=== PATIENT | female | born 1940 | race Caucasian/White ===

== ENCOUNTER 2021-05-29 10:16 | Outpatient (REF) | payer MEDICARE, SELFPAY ==
[2021-05-29 11:05] LABS: COVID-19 Test Negative (Negative); IDNOW Serial# 16C4AD1C
== END 2021-05-29 10:17 | disposition home or self-care (01) ==
LOC: HO.LAB 10:16
PROVIDERS: Visit Provider Internal Medicine
DX: Z20.822 Contact with and (suspected) exposure to COVID-19 (principal)
CPT/HCPCS: 36415; 87635; C9803

== ENCOUNTER 2023-06-02 10:04 | Emergency (ER) | payer MEDICARE, SELFPAY ==
--- NOTE | 2023-06-02 | ECG_ITS ---
Test Reason : weakness Blood Pressure : / mmHG Vent. Rate : 080 BPM Atrial Rate : 080 BPM P-R Int : 168 ms QRS Dur : 090 ms QT Int : 388 ms P-R-T Axes : 070 036 061 degrees QTc Int : 447 ms Sinus rhythm with occasional Premature ventricular complexes Otherwise normal ECG When compared with ECG of 19-MAY-2017 22:50, Premature ventricular complexes are now Present Referred By: Generic ED Physician Electronically Signed By:Richard Starks
--- NOTE | ~2023-06-02 | XR_ITS ---
EXAMINATION: XR CHEST CLINICAL INFORMATION: Hypertension COMPARISON: Chest x-ray May 19, 2017 TECHNIQUE: Frontal portable view of the chest was obtained. 1:03 PM FINDINGS: Lungs are clear. No pulmonary vascular congestion. There is no pleural effusion. The heart size is normal. The cardiac and mediastinal contours are normal. There are calcifications of the thoracic aorta. There are multilevel degenerative changes of dorsal spine. XR/XR chest 1V IMPRESSION: Unremarkable examination.
[2023-06-02 10:13] VITALS: BP 174/61; PULSE 77; RESP 20; TEMP 36.5; O2SAT 99; BMI 23.4
[2023-06-02 10:44] LABS: MANUAL DIFF FLAG NO
[2023-06-02 10:48] LABS: Basophils Percent Auto 0.9 % (0-2); Eosinophils Absolute Auto 0.1 X10*3/uL (0.0-0.4); Eosinophils Percent Auto 1.6 % (0-4); Hemoglobin 13.7 g/dl (12.0-16.0); Imm Gran Abs Auto 0.01 X10*3/uL (0.00-0.03); Imm Gran Pct Auto 0.2 % (0.0-0.4); Mean Corpuscular HGB Conc 33.4 g/dl (31.0-35.0); Mean Corpuscular Hemoglobin 31.7 pg (27.0-33.0); Mean Corpuscular Volume 94.9 fL (80.0-98.0); Mean Platelet Volume 9.5 fL (9.4-12.3); Monocytes Absolute Auto 0.3 X10*3/uL (0.1-1.2); Monocytes Percent Auto 7.5 % (2-11); Neutrophils Absolute Auto 2.8 x10*3/uL (2.0-8.3); Neutrophils Percent Auto 65.8 % (45-73); Platelet Count 171 X10*3/uL (160-400); Red Blood Count 4.32 X10*6/uL (4.20-5.50); Red Cell Distribution Width 12.6 % (11.0-16.0); White Blood Count 4.3 X10*3/uL (4.8-10.8)
[2023-06-02 11:00] LABS: Anion Gap 12 (12-20); Blood Urea Nitrogen 15 mg/dL (9-16); Carbon Dioxide 29 mmol/L (22-29); Chloride 103 mmol/L (96-108); Creatinine Clr Calc Pharmacy 49.2; Estimated Glomerular Filt Rate > 60; Glucose Random 101 mg/dL (60-115); Potassium 3.4 mmol/L (3.3-5.1); Sodium 141 mmol/L (135-145)
[2023-06-02 11:11] LABS: Troponin-I High Sensitivity < 2.7 ng/L (<3.5-17.0)
[2023-06-02 11:13] VITALS: BP 159/69; PULSE 73; RESP 16; TEMP 36.6; O2SAT 97
[2023-06-02 11:47] LABS: Appearance Urine Clear; Color Urine Yellow; Glucose Urine UA Negative (Negative); Leukocyte Esterase Urine Trace (Negative); Nitrite Urine Negative (Negative); PH 6.5 (5.0-9.0); UMIC TRIGGER UACC YES; Urine Blood Negative (Negative); Urine Ketones Negative (Negative); Urine Protein Negative (Neg-Trace)
[2023-06-02 11:48] LABS: Influenza A PCR NEGATIVE (Negative); Influenza B PCR NEGATIVE (Negative); Resp Syncy Virus RNA Qual PCR NEGATIVE (Negative); SARS COV2 PCR INHOUSE NEGATIVE (Negative)
[2023-06-02 11:51] LABS: Bacteria Urine None Seen (None Seen); Hyaline Casts Urine 0-2 /LPF (0-2); RBC Urine 0-2 /HPF (0-2); Squamous Epithelial Cell Urine 0-2 /HPF (0-2); WBC Urine 0-5 /HPF (0-5)
--- NOTE | 2023-06-02 11:51 | PC.NURSE ---
alert and oriented with even and unlabored respirations. reporting for past week or so with hypertension even with her medications. also stating that she was recently treated for a urinary tract infection. ambulated with strong, steady gait to the bathroom to obtain urine sample. at bedside, call phillip remains within reach.
[2023-06-02 12:09] VITALS: BP 142/62; PULSE 75; RESP 16; O2SAT 96
--- NOTE | 2023-06-02 12:13 | ED.GENADULT ---
HPI - General Adult General Chief complaint: General Medical Stated complaint: high bp Time Seen by Provider: 06/02/23 11:37 Source: patient Mode of arrival: ambulatory Limitations: no limitations History of Present Illness HPI narrative: This is an 82-year-old female history of hyperlipidemia, hypertension presenting to the emergency department for evaluation of high blood pressure readings at home systolic pressures in the 180s, patient reports aside from this she has also been having a sore neck, fatigue, malaise, myalgias. This has been ongoing for the past 2 weeks patient reports she was recently on a 3 day course of ciprofloxacin for urinary tract infection, she reports her symptoms are still present however. Still reporting urinary frequency, urgency.. She reports she competed the course as prescribed. She denies chest pain, shortness of breath, nausea, vomiting, palpitations, headache, vision changes, dizziness and weakness. Her blood pressure numbers at home are making her nervous Related Data Previous Rx's Medication Instructions Recorded acetaminophen 325 mg capsule 650 mg (2 x 325 mg) PO Q4H PRN 06/02/23 (Tylenol) pain #30 caps cefuroxime axetil 250 mg tablet 250 mg PO BID 7 days #14 tabs 06/02/23 lidocaine 5 % topical patch 1 patch topical DAILY PRN pain #15 06/02/23 ea Allergies Allergy/AdvReac Type Severity Reaction Status Date / Time No Known Allergies [NKA] Allergy Unknown Unverified 03/06/20 14:39 dairy Allergy Unknown GI upset Uncoded 02/27/18 00:00 Review of Systems Review of Systems: Constitutional : No Weight loss, No Fever, No Chills, + Fatigue, + Malaise ENT/Mouth : No sore throat, No Rhinorrhea Eyes: No Eye Pain, No Swelling, No Redness Cardiovascular : No Chest Pain, No SOB, No Dyspnea on Exertion, No Orthopnea, No Edema, No Palpitations Respiratory : No Cough, No Sputum, No Wheezing Gastrointestinal : No Nausea, No Vomiting, No Diarrhea, No Constipation, No abdominal Pain, No Hematochezia, No Melena Genitourinary : No Dysuria, No Urinary Frequency, No Hematuria, Musculoskeletal : No joint pain, No Myalgias, No Joint Swelling, + neck pain Skin : No Skin Lesions, No rash Neuro : No Weakness, No Numbness, No Dizziness, No Headache Psych : No Anxiety/Panic, No Depression All other systems reviewed and are negative Yes all other systems are reviewed and are negative [facility] Social History Social History Advance Directives: No Advance Directives Information Provided: Yes Physical Exam ED Vital Signs: Vital Signs - 24 hr 06/02/23 10:13 06/02/23 11:13 06/02/23 12:09 Temperature 97.7 F 97.9 F Pulse Rate 77 73 75 Respiratory Rate 20 16 16 Blood Pressure 174/61 H 159/69 H 142/62 H Pulse Oximetry 99 97 96 Oxygen Delivery Method Room Air Room Air Room Air BMI result Body Mass Index 23.4 Vital signs stable Appearance: Alert.? Oriented X3.? No acute distress.? Head: Normocephalic, atraumatic, no step-offs or deformities Eyes: Pupils equal, round and reactive to light.? Neck: Normal inspection.? Neck supple.? No carotid bruits bilateral + cervical paraspinous tenderness bilaterally with radiation into trapezius bilaterally. No midline tenderness CVS: Normal heart rate and rhythm.? Pulses normal.? Respiratory: No respiratory distress.? Breath sounds normal.? Abdomen: Soft and nontender.? Skin: Skin warm and dry.? Normal skin color.? Normal skin turgor.? Extremities: No lower extremity edema.? No calf ttp. 5/5 strength to bilateral upper and lower extremities Back: No midline tenderness, no C-spine tenderness, full range of motion, no CVA tenderness bilaterally Neuro: Oriented X 3.? No motor deficit.? No sensory deficit. CN 2-12 intact . Ambulating with steady gait normal coordination. Course Reevaluation(s) Reevaluation #1: CBC with leukopenia no previous labs to compare with. Chemistry no acute findings requiring intervention. Troponin negative, EKG nonischemic unlikely ACS. Normal CPK unlikely rhabdomyolysis. UA with positive leukocyte esterases however no bacteria, patient just completed treatment for UTI this is likely why bacteria not present however this could be a UTI still will treat with Ceftin. Flu/COVID/RSV negative. Repeat troponin pending. Re-evaluation pending Time: 13:12 Reevaluation #2: Patient reports Valium made her neck pain better and so did the Lidoderm patch. Waiting for repeat troponin. No chest pain or shortness of breath vital signs remain stable. Time: 13:26 Reevaluation #3: Patient feeling well. Vital signs stable. No chest pain or shortness of breath negative 2nd troponin unlikely ACS or cardiac etiology. Educated patient on diagnosis and treatment plan, answered all question, patient verbalizes understanding. At this time patient will be discharged home, advised to return with new or worsening symptoms. Educated on worrisome signs and symptoms and when to return. At this time I feel comfortable discharge home. Time: 13:48 Medications Administered Discontinued Medications Generic Name Dose Route Start Last Admin Trade Name Braulio PRN Reason Stop Dose Admin Diazepam 1 mg 06/02/23 12:38 06/02/23 13:01 Diazepam 2 Mg Tablet PO 06/02/23 12:39 1 mg ONCE ONE Administration Lidocaine 1 patch 06/02/23 12:38 06/02/23 13:01 Lidocaine 4 % Patch Adh..Patch TRANSDERMA 06/02/23 12:39 1 patch ONCE ONE Administration Protocol Medical Decision Making Medical Decision Making MDM Narrative: [address] 82-year-old female presents with fatigue, malaise myalgias, urinary frequency, urgency, concerns of hypertension at home. Physical exam benign. No carotid bruits. Vital signs stable. Patient's blood pressure slightly elevated. History and physical exam concerning for likely symptoms secondary to UTI versus cystitis. Patient is very anxious/nervous about her blood pressures which could also be elevating them falsely she is also not feeling well which could also lead to an elevation of blood pressure. No signs of hypertensive urgency, emergency, dissection, intracranial hemorrhage, stroke, ACS. No abdominal tenderness no signs of obstructing uropathy acute abdomen. Unlikely systemic disease/illness Plan at this time will obtain labs, UA, viral testing and troponins peer Differential Diagnosis Differential Diagnoses: The differential diagnosis associated with the presentation includes History and physical exam concerning for likely symptoms secondary to UTI versus cystitis. Patient is very anxious/nervous about her blood pressures which could also be elevating them falsely she is also not feeling well which could also lead to an elevation of blood pressure. No signs of hypertensive urgency, emergency, dissection, intracranial hemorrhage, stroke, ACS. No abdominal tenderness no signs of obstructing uropathy acute abdomen. Unlikely systemic disease/illness Admission/Observation Consideration of admission/observation: Escalation of care including admission/observation considered Unlikely Lab Data [facility] Lab Attestation statement: I reviewed the patient's lab results. 06/02/23 10:36 06/02/23 10:36 Labs: Lab Results 06/02/23 06/02/23 06/02/23 Range/Units 10:36 11:38 13:08 WBC 4.3 L (4.8-10.8) X10*3/uL RBC 4.32 (4.20-5.50) X10*6/uL Hgb 13.7 (12.0-16.0) g/dl Hct 41.0 (37.0-47.0) % MCV 94.9 (80.0-98.0) fL MCH 31.7 (27.0-33.0) pg MCHC 33.4 (31.0-35.0) g/dl RDW 12.6 (11.0-16.0) % Plt Count 171 (160-400) X10*3/uL MPV 9.5 (9.4-12.3) fL Immature Gran % (Auto) 0.2 (0.0-0.4) % Neut % (Auto) 65.8 (45-73) % Lymph % (Auto) 24.0 (20-40) % [place] % (Auto) 7.5 (2-11) % Eos % (Auto) 1.6 (0-4) % Baso % (Auto) 0.9 (0-2) % Lymph # (Auto) 1.0 L (1.2-4.9) X10*3/uL [place] # (Auto) 0.3 (0.1-1.2) X10*3/uL Eos # (Auto) 0.1 (0.0-0.4) X10*3/uL Baso # (Auto) 0.0 (0.0-0.2) X10*3/uL Abs Immat Gran (auto) 0.01 (0.00-0.03) X10*3/uL Absolute Neuts (auto) 2.8 (2.0-8.3) x10*3/uL Absolute Nucleated RBC 0.000 (0.0-0.012) X10*3/uL Nucleated RBC % (auto) 0.0 (0.0-0.2) /100WBC Sodium 141 (135-145) mmol/L Potassium 3.4 (3.3-5.1) mmol/L Chloride 103 (96-108) mmol/L Carbon Dioxide 29 (22-29) mmol/L Anion Gap 12 (12-20) BUN 15 (9-16) mg/dL Creatinine 0.72 (0.5-1.4) mg/dL Estim Creat Clear Calc 49.2 Estimated GFR > 60 Random Glucose 101 (60-115) mg/dL Calcium 10.0 (8.4-10.2) mg/dL Total Creatine Kinase 34 (26-140) U/L Troponin I High Sens < 2.7 3.6 (<3.5-17.0) ng/L Urine Color Yellow Urine Appearance Clear Urine pH 6.5 (5.0-9.0) Ur Specific [place] 1.010 (1.005-1.025) Urine Protein Negative (Neg-Trace) mg/dL Urine Glucose (UA) Negative (Negative) mg/dL Urine Ketones Negative (Negative) mg/dL Urine Blood Negative (Negative) Urine Nitrite Negative (Negative) Ur Leukocyte Esterase Trace H (Negative) Urine RBC 0-2 (0-2) /HPF Urine WBC 0-5 (0-5) /HPF Ur Squamous Epith Cells 0-2 (0-2) /HPF Urine Bacteria None Seen (None Seen) Hyaline Casts 0-2 (0-2) /LPF Influenza Type A (PCR) NEGATIVE (Negative) Influenza Type B (PCR) NEGATIVE (Negative) RSV RNA Qual (PCR) NEGATIVE (Negative) SARS-CoV-2 RNA (RT-PCR) NEGATIVE (Negative) Independent Interpretation I performed an independent interpretation of an: EKG (Ventricular rate 80. Normal, QRS normal, QT/QTC normal, EKG was sinus rhythm and intermittent PVCs. No ST elevations or inversions concerning for acute ischemia.) and Plain X-Ray Radiology Impression Discussion of test interpretation with radiology: I have reviewed the radiologist's reading. Tests considered The following testing was considered but not selected: No red flag symptoms no meningeal signs no signs of cervical myelopathy note Prescription Management I considered prescription management with: Other (lidoderm, tylenol ) Chronic Conditions Patient?s care impacted by: Hypertension Discharge Plan Discharge Clinical Impression: High blood pressure, Acute UTI Patient Disposition: Home, Self-Care Instructions: Urinary Tract Infection in Women (ED), Hypertension (ED) Additional Instructions: Take your medications as prescribed. If you were prescribed antibiotics today, it is important that you take your medication to their entirety, do not skip any doses, do not finish them early. Follow-up with your primary care provider this week. Return to the emergency department with new or worsening symptoms. Such as fevers, chills, chest pain, shortness of breath, nausea, vomiting, dizziness, headache, vision changes, lethargy In case of emergency call 911 Prescriptions: New lidocaine 5 % adhesive patch,medicated 1 patch topical DAILY PRN (Reason: pain) Qty: 15 0RF Rx Instructions: leave on most painful area for up to 12 hrs acetaminophen [Tylenol] 325 mg capsule 650 mg PO Q4H PRN (Reason: pain) Qty: 30 0RF cefuroxime axetil 250 mg tablet 250 mg PO BID 7 Days Qty: 14 0RF Referrals: Eugene Fernandez MD [Primary Care Provider] - 2 days
[2023-06-02] MEDS: diazePAM 2 MG TABLET 1 MG PO (13:01)
[2023-06-02] MEDS: Lidocaine 4 % Patch ADH..PATCH 1 PATCH TRANSDERMA (13:01)
[2023-06-02 13:36] LABS: Troponin-I High Sensitivity 3.6 ng/L (<3.5-17.0)
== END 2023-06-02 13:58 | disposition home or self-care (01) ==
PROVIDERS: Physician Assistant; Emergency Provider Student in an Organized Health Care Education/Training Program; PCP Internal Medicine
DX: N39.0 Urinary tract infection, site not specified (principal); R94.31 Abnormal electrocardiogram [ECG] [EKG]; I10 Essential (primary) hypertension; Z20.822 Contact with and (suspected) exposure to COVID-19; Z20.828 Contact with and (suspected) exposure to other viral communicable diseases
CPT/HCPCS: 0241U; 36415; 71045; 80048; 81001; 82550; 84484; 85025; 93005; 99283; 99284

== ENCOUNTER → 2023-06-02 10:25 | Outpatient (BNV) | payer MEDICARE, SELFPAY | PROVIDERS: PCP Internal Medicine; Visit Provider Internal Medicine Cardiovascular Disease | DX: I49.3 Ventricular premature depolarization (principal) | CPT/HCPCS: 93010 ==

== ENCOUNTER 2024-07-28 10:49 | Emergency (ER) | payer MEDICARE, SELFPAY ==
--- NOTE | ~2024-07-28 | XR_ITS ---
CLINICAL HISTORY: cough, fever 2 view chest x-ray Comparison: CR/ME/SR - XR CHEST 1V - 06/02/23 13:03 EST Findings: Possible faint right lower lobe density. No effusion. No pneumothorax. Cardiac and mediastinal contours are stable. No acute fracture. IMPRESSION: Possible faint right lower lobe infiltrate. Follow-up recommended. This document has been electronically signed by: Andrew Massey MD on 07/28/2024 12:43:18
[2024-07-28 10:55] VITALS: BP 122/50; PULSE 76; RESP 16; TEMP 36.6; O2SAT 96; BMI 22.9
[2024-07-28 11:26] LABS: MANUAL DIFF FLAG NO
[2024-07-28 11:28] LABS: Basophils Percent Auto 0.9 % (0-2); Eosinophils Percent Auto 0.3 % (0-4); Hematocrit 38.6 % (37.0-47.0); Hemoglobin 13.1 g/dl (12.0-16.0); Imm Gran Abs Auto 0.01 X10*3/uL (0.00-0.03); Imm Gran Pct Auto 0.3 % (0.0-0.4); Mean Corpuscular HGB Conc 33.9 g/dl (31.0-35.0); Mean Corpuscular Hemoglobin 31.8 pg (27.0-33.0); Mean Corpuscular Volume 93.7 fL (80.0-98.0); Mean Platelet Volume 9.7 fL (9.4-12.3); Monocytes Absolute Auto 0.5 X10*3/uL (0.1-1.2); Monocytes Percent Auto 15.7 % (2-11); Neutrophils Absolute Auto 1.9 x10*3/uL (2.0-8.3); Neutrophils Percent Auto 54.8 % (45-73); Platelet Count 153 X10*3/uL (160-400); Red Blood Count 4.12 X10*6/uL (4.20-5.50); Red Cell Distribution Width 12.6 % (11.0-16.0); White Blood Count 3.4 X10*3/uL (4.8-10.8)
[2024-07-28 11:49] LABS: Anion Gap 11 (12-20); Blood Urea Nitrogen 13 mg/dL (9-16); Calcium 9.4 mg/dL (8.4-10.2); Carbon Dioxide 26 mmol/L (22-29); Chloride 105 mmol/L (96-108); Creatinine Clr Calc Pharmacy 42.8; Estimated Glomerular Filt Rate > 60; Glucose Random 109 mg/dL (60-115); Potassium 3.7 mmol/L (3.3-5.1); Sodium 138 mmol/L (135-145)
[2024-07-28 12:04] LABS: Influenza A PCR NEGATIVE (Negative); Influenza B PCR NEGATIVE (Negative); Resp Syncy Virus RNA Qual PCR NEGATIVE (Negative); SARS COV2 PCR INHOUSE POSITIVE (Negative)
[2024-07-28 14:12] VITALS: BP 122/44; PULSE 70; RESP 16; TEMP 36.6; O2SAT 97
--- NOTE | 2024-07-28 14:12 | ED_ITS ---
HPI - General Adult General Chief complaint: Weakness Stated complaint: covid, exhausted, weakness Time Seen by Provider: 07/28/24 14:17 Source: patient Mode of arrival: wheelchair Limitations: no limitations History of Present Illness ED Provider: Haylee Yo PA-C HPI narrative: Patient is an 84 year old assigned female at with no reported medical history presenting to the emergency department today with a cough, fever, weakness, and COVID. Patient states that over the last week she has felt unwell and on 07/25/2024 she tested positive for COVID. Patient states that she is concerned because she is having coughing fits more frequently. Patient denies any dizziness, lightheadedness, abdominal pain, nausea, vomiting, chills, blurry vision, double vision, loss of vision, chest pain, difficulty breathing, shortness of breath, back pain, night sweats, pain with urination, increased urinary frequency, increased urinary urgency, blood in her urine or stool, syncope or a near syncopal episode, recent trauma or falls, bowel incontinence, bladder incontinence, or any other complaints at this time. Onset (ago): week(s) (1) Relieving factors: none Exacerbating factors: none Associated symptoms: cough and fever/chills Treatments prior to arrival: none Related Data Previous Rx's ?Medication ?Instructions ?Recorded acetaminophen 325 mg capsule 650 mg (2 x 325 mg) PO Q4H PRN 06/02/23 (Tylenol) pain #30 caps cefuroxime axetil 250 mg tablet 250 mg PO BID 7 days #14 tabs 06/02/23 lidocaine 5 % topical patch 1 patch topical DAILY PRN pain #15 06/02/23 ea amoxicillin 875 mg-potassium 1 tab PO BID 7 days #14 tabs 07/28/24 clavulanate 125 mg tablet benzonatate 100 mg capsule 100 mg PO BID PRN cough 7 days #14 07/28/24 caps doxycycline hyclate 100 mg tablet 100 mg PO BID 7 days #14 tabs 07/28/24 Allergies Allergy/AdvReac Type Severity Reaction Status Date / Time No Known Allergies [NKA] Allergy Unknown Verified 07/28/24 11:00 dairy Allergy Unknown GI upset Uncoded 02/27/18 00:00 Review of Systems 2 Constitutional: Constitutional: Reports no additional constitutional complaints, Denies chills, Reports fever(s), Denies night sweats and Reports weakness Eyes: Eyes: Reports no additional eye complaints, Denies blurry vision, Denies change in vision, Denies diplopia, Denies eye discharge, Denies loss of vision and Denies eye pain ENT: Denies dizziness Cardiovascular: Cardiovascular: Reports no additional cardiovascular complaints, Denies chest pain, Denies lightheadedness, Denies Loss of Consciousness and Denies dyspnea Respiratory: Respiratory: Reports no additional respiratory complaints, Reports cough and Denies dyspnea Gastrointestinal: Gastrointestinal: Reports no additional gastrointestinal complaints, Denies abdominal pain, Denies melena, Denies hematochezia, Denies change in bowel habits and Denies change in stool character Genitourinary: Genitourinary: Denies hematuria, Denies urinary frequency, Denies dysuria, Denies urinary incontinence, Denies urinary hesitancy and Denies urinary urgency Musculoskeletal: Musculoskeletal: Reports no additional musculoskeletal complaints, Denies numbness and Denies tingling Neurologic: Denies dizziness, Denies loss of vision, Denies numbness, Denies tingling and Reports weakness Psychiatric: Psychiatric: Reports no additional psychiatric complaints Endocrine: Endocrine: Reports no additional endocrine complaints Hematologic/Lymphatic: Hematologic/Lymphatic: Reports no additional hematologic/lymphatic complaints Allergic/Immunologic: Allergic/Immunologic: Reports no additional allergic/immunologic complaints PMFSH Past Medical History Attestation statement: The following information was validated with the patient. Source: old records reviewed and nursing notes reviewed Social History Social History Advance Directives: No Advance Directives Information Provided: No Physical Exam ED Vital Signs: Vital Signs - 24 hr 07/28/24 10:55 07/28/24 14:12 07/28/24 14:33 Temperature 97.9 F 97.9 F 97.9 F Pulse Rate 76 70 70 Respiratory Rate 16 16 16 Blood Pressure 122/50 L 122/44 L 122/44 L Pulse Oximetry 96 97 97 Oxygen Delivery Method Room Air Room Air Room Air BMI result Body Mass Index 22.9 Const General: cooperative, no acute distress, alert and awake Nutritional Appearance: well nourished Orientation/consciousness: patient oriented x3 Limitations: no limitations HENMT Head: Yes normal to inspection and Yes atraumatic Ears: hearing grossly normal bilaterally and external ears normal General nose exam: Normal external nose present, no nasal discharge noted and no epistaxis Face and sinus: Yes normal facial exam, No abrasion and No laceration Mouth: Normal oral and palatal mucosa present, no drooling and no muffled voice Eyes General: appearance normal, both eyes and all related structures Periorbital: periorbital findings normal Eyelids: Yes eyelids normal Conjunctivae: conjunctivae normal Pupils: Equal, round and reactive pupils present EOM: EOMs intact bilaterally Neck Neck: Yes normal visual inspection, Yes full ROM and Yes no lymphadenopathy Chest Chest palpation & inspection: normal inspection of the chest Resp Effort & Inspection: normal respiratory effort and able to speak in complete sentences GI Inspection: Yes normal to inspection Neuro General: patient oriented x3, moves all extremities and CN's II-XI intact bilaterally Cranial nerves: Yes Equal, round and reactive pupils present Cognition (Neuro): normal cognition Extrem General: Yes normal to inspection, Yes full ROM and Yes capillary refill normal Psych Appearance: grossly normal Mental Status: mental status grossly normal Affect: normal affect Attitude: cooperative Thought process: Normal thought process present Thought content: Normal thought content present Insight: Good insight present (Psych) Medical Decision Making Medical Decision Making MDM Narrative: Patient is an 84 year old assigned female at with no reported medical history presenting to the emergency department today with a cough, fever, weakness, and COVID. Patient's physical exam was unremarkable. Patient's blood work was unremarkable. Patient's chest x-ray showed a possible right lower lobe infiltrate - given the patient's length of symptoms and presentation, will treat for superimposed pneumonia. I explained my physical exam findings as well as all test results to the patient. I answered all questions asked by the patient. I stressed the importance of the patient taking her medication as directed (either prescribed or as the over the counter packaging recommends). I stressed the importance of the patient following up with her primary care provider. I stressed the importance of the patient returning to the emergency department immediately if her symptoms were to worsen or if she were to develop any dizziness, shortness of breath, difficulty breathing, chest pain, blurry vision, loss of vision, nausea, vomiting, abdominal pain, fever, chills, back pain, or any other complaints. Patient verbalized agreement and understanding with this treatment plan and discharge. Differential Diagnosis Differential Diagnoses: The differential diagnosis associated with the presentation includes COVID-19 Pneumonia Cough Admission/Observation Consideration of admission/observation: Escalation of care including admission/observation considered Patient would have been admitted to the hospital had her work up had any findings where hospital admission was appropriate and her clinical presentation warranted hospital admission. Lab Data [facility] Lab Attestation statement: I reviewed the patient's lab results. My interpretation of these results are in the [facility] Rationale portion of this note. 07/28/24 11:15 07/28/24 11:15 Labs: Lab Results 07/28/24 Range/Units 11:15 WBC 3.4 L (4.8-10.8) X10*3/uL RBC 4.12 L (4.20-5.50) X10*6/uL Hgb 13.1 (12.0-16.0) g/dl Hct 38.6 (37.0-47.0) % MCV 93.7 (80.0-98.0) fL MCH 31.8 (27.0-33.0) pg MCHC 33.9 (31.0-35.0) g/dl RDW 12.6 (11.0-16.0) % Plt Count 153 L (160-400) X10*3/uL MPV 9.7 (9.4-12.3) fL Immature Gran % (Auto) 0.3 (0.0-0.4) % Neut % (Auto) 54.8 (45-73) % Lymph % (Auto) 28.0 (20-40) % [place] % (Auto) 15.7 H (2-11) % Eos % (Auto) 0.3 (0-4) % Baso % (Auto) 0.9 (0-2) % Lymph # (Auto) 1.0 L (1.2-4.9) X10*3/uL [place] # (Auto) 0.5 (0.1-1.2) X10*3/uL Eos # (Auto) 0.0 (0.0-0.4) X10*3/uL Baso # (Auto) 0.0 (0.0-0.2) X10*3/uL Abs Immat Gran (auto) 0.01 (0.00-0.03) X10*3/uL Absolute Neuts (auto) 1.9 L (2.0-8.3) x10*3/uL Absolute Nucleated RBC 0.000 (0.0-0.012) X10*3/uL Nucleated RBC % (auto) 0.0 (0.0-0.2) /100WBC Sodium 138 (135-145) mmol/L Potassium 3.7 (3.3-5.1) mmol/L Chloride 105 (96-108) mmol/L Carbon Dioxide 26 (22-29) mmol/L Anion Gap 11 L (12-20) BUN 13 (9-16) mg/dL Creatinine 0.80 (0.5-1.4) mg/dL Estim Creat Clear Calc 42.8 Estimated GFR > 60 Random Glucose 109 (60-115) mg/dL Calcium 9.4 (8.4-10.2) mg/dL Influenza Type A (PCR) NEGATIVE (Negative) Influenza Type B (PCR) NEGATIVE (Negative) RSV RNA Qual (PCR) NEGATIVE (Negative) SARS-CoV-2 RNA (RT-PCR) POSITIVE A (Negative) Independent Interpretation I performed an independent interpretation of an: Plain X-Ray Interpretation: My interpretation is in agreement with the radiologist's impression of this imaging study. L CLINICAL HISTORY: cough, fever 2 view chest x-ray Comparison: CR/MI/SR - XR CHEST 1V - 06/02/23 13:03 EST Findings: Possible faint right lower lobe density. No effusion. No pneumothorax. Cardiac and mediastinal contours are stable. No acute fracture. IMPRESSION: Possible faint right lower lobe infiltrate. Follow-up recommended. This document has been electronically signed by: Andrew Massey MD on 07/28/2024 12:43:18 Dictated By: Andrew Massey MD Signed By: Electronically signed by Andrew Massey MD 07/28/24 1243 Radiology Impression Discussion of test interpretation with radiology: I have reviewed the radiologist's reading. Prescription Management I considered prescription management with: Antibiotic (patient prescribed an antibiotic for penumonia) Discharge Plan Discharge Clinical Impression: COVID-19, Pneumonia Patient Disposition: Home, Self-Care Instructions: Pneumonia (ED), COVID-19 (Coronavirus Disease 2019) (ED) Additional Instructions: Please continue to drink fluids. If you find yourself unable to keep fluids down - proceed to your nearest emergency department immediately. Take your medication as prescribed. Follow up with your primary care provider. Return to the emergency department immediately if your symptoms worsen or if you develop any dizziness, shortness of breath, difficulty breathing, chest pain, blurry vision, loss of vision, nausea, vomiting, abdominal pain, fever, chills, back pain, or any other complaints. Prescriptions: New benzonatate 100 mg capsule 100 mg PO BID PRN (Reason: cough) 7 Days Qty: 14 0RF doxycycline hyclate 100 mg tablet 100 mg PO BID 7 Days Qty: 14 0RF amoxicillin-pot clavulanate 875-125 mg tablet 1 tab PO BID 7 Days Qty: 14 0RF No Action lidocaine 5 % adhesive patch,medicated 1 patch topical DAILY PRN (Reason: pain) Qty: 15 0RF Rx Instructions: leave on most painful area for up to 12 hrs acetaminophen [Tylenol] 325 mg capsule 650 mg PO Q4H PRN (Reason: pain) Qty: 30 0RF cefuroxime axetil 250 mg tablet 250 mg PO BID 7 Days Qty: 14 0RF Referrals: Eugene Fernandez MD [Primary Care Provider] - Interventions: ED Discharge Assessment Last Done: 07/28/24 14:33 Discharge Date/Time: 07/28/24 14:34 Print Language: Georgian
[2024-07-28 14:33] VITALS: BP 122/44; PULSE 70; RESP 16; TEMP 36.6; O2SAT 97
== END 2024-07-28 14:34 | disposition home or self-care (01) ==
PROVIDERS: Emergency Provider Emergency Medicine; PCP Internal Medicine
DX: U07.1 COVID-19 (principal); J12.82 Pneumonia due to coronavirus disease 2019
CPT/HCPCS: 0241U; 71046; 80048; 85025; 99282; 99283

== ENCOUNTER → 2024-07-28 11:38 | Outpatient (BNV) | payer MEDICARE, SELFPAY | PROVIDERS: PCP Internal Medicine; Visit Provider Radiology Vascular & Interventional Radiology | DX: R05.9 Cough, unspecified (principal); R50.9 Fever, unspecified | CPT/HCPCS: 71046 ==